=== PATIENT | female | born 1940 | race Caucasian/White ===

== ENCOUNTER 2018-11-03 20:55 | Emergency (ER) | payer MEDICARE, OTHER ==
--- NOTE | 2018-11-03 21:27 | EDM.PDOC ---
ED HPI GENERAL MEDICAL PROBLEM - General Chief Complaint: Lower Extremity Injury/Pain Stated Complaint: INJURED ANKLE Time Seen by Provider: 11/03/18 21:25 Source of Information: Reports: Patient History Limitations: Reports: No Limitations - History of Present Illness INITIAL COMMENTS - FREE TEXT/NARRATIVE: c/o pain and swelling to left ankle, getting neighbors, mail, missed step twisting ankle. landed on buttocks, Did not hit head. No dizziness. Stated garage dark unfamiliar and missed step. Ambulatory weight bearing after. Denies other injury later adding intermittent mild left hip buttock pain. Treatments JOURNALISM INTERN: Reports: NSAIDS Left Ankle Pain Score (Numeric/FACES): 6 - Related Data Allergies Allergy/AdvReac Type Severity Reaction Status Date / Time Penicillins Allergy Hives Verified 11/03/18 21:24 Home Meds: Home Meds Losartan/Hydrochlorothiazide [Losartan-HCTZ 100-12.5 MG] 1 tab PO DAILY [History] Mesalamine [Delzicol] 800 mg PO BID 11/03/18 [History] Past Medical History Cardiovascular History: Reports: Hypertension Gastrointestinal History: Reports: Other (See Below) Other Gastrointestinal History: Ulcerative Colitis Review of Systems - Review of Systems Review Of Systems: ROS reveals no pertinent complaints other than HPI. ED EXAM, GENERAL - Physical Exam Exam: See Below Exam Limited By: No Limitations General Appearance: Alert, Mild Distress Eye Exam: Bilateral Eye: EOMI Ears: Normal External Exam, Hearing Grossly Normal Nose: Normal Inspection Throat/Mouth: Normal Voice Head: Atraumatic, Normocephalic Neck: Normal Inspection, Full Range of Motion Respiratory/Chest: No Respiratory Distress, Lungs Clear Cardiovascular: Normal Peripheral Pulses, Regular Rate, Rhythm GI/Abdominal: Soft Back Exam: Full Range of Motion Extremities: Limited Range of Motion (lateral swelling left ankle mild pain with inversion and flexion), Other (good ROM left hip no pain with ROM or palpation) Neurological: Alert, Oriented, Normal Cognition, No Motor/Sensory Deficits Psychiatric: Normal Affect Skin Exam: Warm, Dry, Intact, Ecchymosis (lateral left ankle) Course - Vital Signs Last Recorded V/S: Last Vital Signs Temp 97.3 F 11/03/18 21:24 Pulse 66 11/03/18 21:24 Resp 16 11/03/18 21:24 BP 96/81 11/03/18 21:24 Pulse Ox 100 11/03/18 21:24 - Orders/Labs/Meds Orders: Active Orders 24 hr Category Date Time Status Ankle Min 3V Lt [CR] Urgent Exams 11/03/18 21:23 Taken - Radiology Interpretation Free Text/Narrative:: [facility] [place] [facility] Final Radiology Report Call: [phone] assistance Online chat: [email or web address] Name: ALTAF BUENO Age: 78Years F Date: 11/03/2018 SSN: -- : [id number] Study: XR ANKLE COMPLETE MIN 3 VIEWS LEFT Requesting Physician: ROD WEST Images: 3 Addl Studies: Provided Clinical History: Contrast: Contrast Medium: Contrast Amount: Contrast Method: CONFIDENTIALITY STATEMENT This report is intended only for use by the referring physician, and only in accordance with law. If you received this in error, call [phone]. Page 1 of 1 EXAM: XR Left Ankle EXAM DATE/TIME: 11/03/2018 9:30 PM CLINICAL HISTORY: 78 years old, female; Left; Patient HX: Missed step twisting ankle, lateral ankle pain and swelling TECHNIQUE: Imaging protocol: XR Left ankle. Views: 3 or more views. COMPARISON: No relevant prior studies available. FINDINGS: Bones/joints: No acute fracture. Soft tissues: There is significant soft tissue swelling in the lateral malleolus. IMPRESSION: No acute osseous process. Thank you for allowing us to participate in the care of your patient. Dictated and Authenticated by: Sundar Barry MD 11/03/2018 9:59 PM Central Time ([place] & [place]) - Re-Assessments/Exams Free Text/Narrative Re-Assessment/Exam: 11/03/18 22:00 C/o intermittent left hip pain. Refuses xray of hip or pelvis. Recommend follow up tomorrow if pain continues Departure - Departure Time of Disposition: 22:01 Disposition: Home, Self-Care 01 Condition: Good Clinical Impression: Left hip pain Fall Qualifiers: Encounter type: initial encounter Qualified Code(s): W19.XXXA - Unspecified fall, initial encounter Left ankle sprain Qualifiers: Encounter type: initial encounter Involved ligament of ankle: unspecified ligament Qualified Code(s): S93.402A - Sprain of unspecified ligament of left ankle, initial encounter - Discharge Information *PRESCRIPTION DRUG MONITORING PROGRAM REVIEWED*: Not Applicable *COPY OF PRESCRIPTION DRUG MONITORING REPORT IN PATIENT TATIANA: Not Applicable Instructions: How to Use a Stirrup Ankle Brace, [id number], Ankle Sprain, [id number] Forms: ED Department Discharge Additional Instructions: ice elevate, ankle brace tylenol 650 mg every 4 hours as needed for discomfort follow up if symptoms worsen - My Orders Last 24 Hours: My Active Orders 11/03/18 21:23 Ankle Min 3V Lt [CR] Urgent - Assessment/Plan Last 24 Hours: My Active Orders 11/03/18 21:23 Ankle Min 3V Lt [CR] Urgent
== END 2018-11-03 22:20 | disposition home or self-care (01) ==
LOC: DL.ED 20:55
DX: S93.402A Sprain of unspecified ligament of left ankle, initial encounter (principal); M25.552 Pain in left hip; I10 Essential (primary) hypertension; Z88.0 Allergy status to penicillin; Z79.899 Other long term (current) drug therapy; W19.XXXA Unspecified fall, initial encounter
CPT/HCPCS: 73610-LT; 99283-25

== ENCOUNTER 2019-11-08 07:01 | Emergency (ER) | payer MEDICARE, OTHER ==
--- NOTE | 2019-11-08 07:13 | EDM.PDOC ---
ED HPI GENERAL MEDICAL PROBLEM - General Chief Complaint: Chest Pain Stated Complaint: CHEST PAINS Time Seen by Provider: 11/08/19 07:13 Source of Information: Reports: Patient, RN, RN Notes Reviewed History Limitations: Reports: No Limitations - History of Present Illness INITIAL COMMENTS - FREE TEXT/NARRATIVE: Pt presents to ER from home by POV with c/o chest and upper abdominal pain for the past 2 days. The pain radiates from the epigastric and substernal chest to her upper back and hurts between her shoulder blades, and sometimes into the left upper arm. She also c/o nausea. Denies vomiting, diarrhea, constipation, cough, lightheadedness, syncope, palpitation, edema, fever, or chills. Pt admits that she has had some degree of epigastric discomfort after eating for several weeks, but not consistently. She says she has been burping a lot more that usual. She also admits to feeling short of breath at times, especially with exertion. The symptoms are worse after she eats. She has been taking Tylenol, Ibuprofen, and Tums with minimal relief. Denies Hx of CAD/ME, CVA, or DM. Denies history of abdominal surgery. Onset: Gradual Duration: Day(s): (3), Recurring, Waxing/Waning Location: Reports: Chest, Abdomen Quality: Reports: Ache, Burning Severity: Moderate Improves with: Reports: None Worsens with: Reports: Eating Associated Symptoms: Reports: No Other Symptoms - Related Data Allergies Allergy/AdvReac Type Severity Reaction Status Date / Time lactose Allergy Intolerance Verified 11/08/19 07:17 Penicillins Allergy Hives Verified 11/08/19 07:17 Home Meds: Home Meds Losartan/Hydrochlorothiazide [Losartan-HCTZ 100-12.5 MG] 1 tab PO DAILY 11/03/18 [History] Mesalamine [Delzicol] 800 mg PO BID 11/03/18 [History] Past Medical History HEENT History: Reports: Impaired Vision Cardiovascular History: Reports: Hypertension Gastrointestinal History: Reports: Other (See Below) Other Gastrointestinal History: Ulcerative Colitis DICE TABLE PERSON History: Reports: Musculoskeletal History: Reports: Osteoporosis - Past Surgical History HEENT Surgical History: Reports: Cataract Surgery Social & Family History - Family History Family Medical History: Noncontributory - Caffeine Use Caffeine Use: Reports: Coffee, Tea - Living Situation & Occupation Living situation: Reports: , with Spouse Occupation: Retired ED ROS GENERAL - Review of Systems Review Of Systems: Comprehensive ROS is negative, except as noted in HPI. ED EXAM, GENERAL - Physical Exam Exam: See Below Exam Limited By: No Limitations General Appearance: Alert, WD/WN, No Apparent Distress Nose: Normal Inspection, Normal Mucosa, No Blood Throat/Mouth: Normal Inspection, Normal Lips, Normal Voice, No Airway Compromise Head: Atraumatic, Normocephalic Neck: Normal Inspection, Supple, Non-Tender, Full Range of Motion Respiratory/Chest: No Respiratory Distress, Lungs Clear, Normal Breath Sounds, No Accessory Muscle Use, Chest Non-Tender Cardiovascular: Normal Peripheral Pulses, Regular Rate, Rhythm, No Edema, No Gallop, No JVD, No Murmur, No Rub GI/Abdominal: Normal Bowel Sounds, Soft, No Distention, Tender (at epigastric region). No: Guarding, Rigid, Rebound (Female) Exam: Deferred Rectal (Female) Exam: Deferred Back Exam: Normal Inspection, Full Range of Motion. No: CVA Tenderness (L), CVA Tenderness (R) Extremities: Normal Inspection, Normal Range of Motion, Non-Tender, Normal Capillary Refill, No Pedal Edema Neurological: Alert, Oriented, CN II-XII Intact, Normal Cognition, Normal Gait, No Motor/Sensory Deficits Psychiatric: Normal Affect, Normal Mood Skin Exam: Warm, Dry, Intact, Normal Color, No Rash EKG INTERPRETATION EKG Date: 11/08/19 Time: 07:13 Rhythm: Other (SR) Rate (Beats/Min): 63 [place]: Normal P-Wave: Present (P wave inverted in V1 and V2) QRS: Normal ST-T: Normal QT: Normal Comparison: NA - No Prior EKG Course - Vital Signs Last Recorded V/S: Last Vital Signs Temp 98.4 F 11/08/19 07:05 Pulse 72 11/08/19 07:05 Resp 16 11/08/19 07:05 BP 151/64 H 11/08/19 07:05 Pulse Ox - Orders/Labs/Meds Orders: Active Orders 24 hr Category Date Time Status EKG 12 Lead [EKG Documentation Completion] [RC] STAT Care 11/08/19 07:12 Active Peripheral IV Care [RC] . DIRECTED Care 11/08/19 07:20 Active Heparin Sodium/0.45% NaCl [Heparin 25,000 Units in 1/2 Med 11/08/19 08:00 Active NS 500 ML] 25,000 units in 500 ml IV TITRATE Nitroglycerin/D5W [Nitroglycerin 25 MG/D5W 250 ML] Med 11/08/19 08:15 Active 25 mg in 250 ml IV TITRATE Sodium Chloride 0.9% [Normal Saline] 250 ml Med 11/08/19 08:45 Active IV ASDIRECTED Sodium Chloride 0.9% [Saline Flush] Med 11/08/19 07:19 Active 10 ml FLUSH ASDIRECTED PRN Peripheral IV Insertion Adult [OM.PC] Stat Oth 11/08/19 07:19 Ordered Medication Orders Heparin Sodium/Sodium Chloride (Heparin 25,000 Units In 1/2 Ns 500 Ml) 25,000 units in 500 mls @ 13.042 mls/hr IV TITRATE DAMON; Protocol Last Admin: 11/08/19 08:05 Dose: 12 units/kg/hr, 13.042 mls/hr Documented by: SAMANTHA Cosigned by: PRINCESS Nitroglycerin/Dextrose (Nitroglycerin 25 Mg/D5w 250 Ml) 25 mg in 250 mls @ 3 mls/hr IV TITRATE DAMON; Protocol Sodium Chloride (Normal Saline) 250 mls @ 999 mls/hr IV ASDIRECTED DAMON Last Admin: 11/08/19 08:50 Dose: 999 mls/hr Documented by: SAMANTHA Sodium Chloride (Saline Flush) 10 ml FLUSH ASDIRECTED PRN PRN Reason: Keep Vein Open Last Admin: 11/08/19 07:31 Dose: 10 ml Documented by: SAMANTHA Labs: Laboratory Tests 11/08/19 11/08/19 Range/Units 07:15 07:15 WBC 9.2 (5.0-10.0) 10^3/uL RBC 4.34 (4.2-5.4) 10^6/uL Hgb 12.8 (12.0-16.0) g/dL Hct 37.5 (37.0-47.0) % MCV 86.4 (80-100) fL MCH 29.5 (27.0-34.0) pg MCHC 34.1 (33.0-35.0) g/dL Plt Count 228 (150-450) 10^3/uL Neut % (Auto) 78.6 H (42.2-75.2) % Lymph % (Auto) 13.8 L (20.5-50.1) % Wilkes % (Auto) 6.6 (2-8) % Eos % (Auto) 0.8 L (1.0-3.0) % Baso % (Auto) 0.2 (0.0-1.0) % Sodium 140 (136-145) mmol/L Potassium 3.6 (3.5-5.1) mmol/L Chloride 103 (98-107) mmol/L Carbon Dioxide 25 (21-32) mmol/L Anion Gap 15.6 H (7-13) mEq/L BUN 15 (7-18) mg/dL Creatinine 1.21 H (0.55-1.02) mg/dL Est Cr Clr Drug Dosing 26.64 mL/min Estimated GFR (MDRD) 43 BUN/Creatinine Ratio 12.4 (No establ ref range) Glucose 120 H (74-99) mg/dL Calcium 9.2 (8.5-10.1) mg/dL Total Bilirubin 0.8 (0.2-1.0) mg/dL AST 40 H (15-37) U/L ALT 28 (14-59) U/L Alkaline Phosphatase 88 (46-116) U/L Troponin I 3.571 H* (0.000-0.056) ng/mL Total Protein 7.1 (6.4-8.2) g/dL Albumin 3.9 (3.4-5.0) g/dL Globulin 3.2 Albumin/Globulin Ratio 1.2 Amylase 46 (25-115) U/L Lipase 117 (73-393) U/L Meds: Medications Generic Name Dose Route Start Last Admin Trade Name Freq PRN Reason Stop Dose Admin Heparin Sodium/Sodium Chloride 25,000 units in 500 mls @ 13.042 mls/hr 11/08/19 08:00 11/08/19 08:05 Heparin 25,000 Units In 1/2 Ns 500 Ml IV 12 units/kg/hr TITRATE DAMON 13.042 mls/hr Administration Protocol 12 UNITS/KG/HR Nitroglycerin/Dextrose 25 mg in 250 mls @ 3 mls/hr 11/08/19 08:15 Nitroglycerin 25 Mg/D5w 250 Ml IV TITRATE DAMON Protocol 5 MCG/MIN Sodium Chloride 250 mls @ 999 mls/hr 11/08/19 08:45 11/08/19 08:50 Normal Saline IV 999 mls/hr ASDIRECTED DAMON Administration Sodium Chloride 10 ml 11/08/19 07:19 11/08/19 07:31 Saline Flush FLUSH 10 ml ASDIRECTED PRN Administration Keep Vein Open Discontinued Medications Generic Name Dose Route Start Last Admin Trade Name Freq PRN Reason Stop Dose Admin Aspirin 324 mg 11/08/19 07:16 11/08/19 07:30 Aspirin PO 11/08/19 07:17 324 mg ONETIME ONE Administration Heparin Sodium (Porcine) 4,000 units 11/08/19 07:48 11/08/19 08:02 Heparin Sodium IVPUSH 11/08/19 07:49 4,000 units .BOLUS ONE Administration Nitroglycerin 0.4 mg 11/08/19 07:16 Nitrostat SL Q5M PRN Chest Pain Ondansetron HCl 4 mg 11/08/19 07:29 11/08/19 07:32 Zofran IV 11/08/19 07:30 4 mg ONETIME ONE Administration - Radiology Interpretation Free Text/Narrative:: [facility] Final Radiology Report Call: [phone] assistance Online chat: [email or web address] Name: ALTAF BUENO Age: 79Years F Date: 11/08/2019 SSN: -- : 1940 Study: CR CHEST 1V FRONTAL Requesting Physician: ANDRY GUERRERO Images: 1 Addl Studies: Provided Clinical History: chest pain Contrast: Contrast Medium: Contrast Amount: Contrast Method: CONFIDENTIALITY STATEMENT This report is intended only for use by the referring physician, and only in accordance with law. If you received this in error, call [phone]. Page 1 of 1 PROCEDURE INFORMATION: Exam: XR Chest, 1 View Exam date and time: 11/08/2019 8:19 AM Age: 79 years old Clinical indication: Chest pain TECHNIQUE: Imaging protocol: XR of the chest Views: 1 view. COMPARISON: No relevant prior studies available. FINDINGS: Lungs: No pneumonia or pulmonary edema. No pneumonia or pulmonary edema. Pleural space: No pleural effusion or pneumothorax. Heart/Mediastinum: The cardiac silhouette is not enlarged. The mediastinal contours are normal. Bones/joints: There is an S-shaped curvature of the thoracolumbar spine. There is a de dios shaped deformity to the ribcage likely due to diffuse osteopenia. IMPRESSION: No acute abnormality. Thank you for allowing us to participate in the care of your patient. Dictated and Authenticated by: Giovanny Pennington MD 11/08/2019 8:40 AM Central Time ([place] & [place]) - Re-Assessments/Exams Free Text/Narrative Re-Assessment/Exam: 11/08/19 07:50 Consult to [facility] for transfer, no beds available. Call to [facility]: 08:07HRS, [facility] on diversion with no beds or case by case and advise to call back at 0817HRS. No bed avail. 0815HR. Call Troy Susan (0815HRS): Dr. Rajput accepts the pt as a direct admit, but pt will have to be held here for 2 hours until the bed becomes available. Departure - Departure Time of Disposition: 08:30 Disposition: DC/Tfer to Acute Hospital 02 Reason for Transfer *Q: Primary PCI Indicated Condition: Serious Clinical Impression: Non-ST elevated myocardial infarction (non-STEMI) Referrals: Danielle Levine FISCAL OFFICER [Primary Care Provider] - Forms: ED Department Discharge, Interfacility Transfer [place] Sepsis Event Note (ED) - Focused Exam Vital Signs: Vital Signs Temp Pulse Resp BP 11/08/19 07:05 98.4 F 72 16 151/64 H - My Orders Last 24 Hours: My Active Orders 11/08/19 07:12 EKG 12 Lead [EKG Documentation Completion] [RC] STAT 11/08/19 07:19 Sodium Chloride 0.9% [Saline Flush] 10 ml FLUSH ASDIRECTED PRN Peripheral IV Insertion Adult [OM.PC] Stat 11/08/19 07:20 Peripheral IV Care [RC] . DIRECTED 11/08/19 08:00 Heparin Sodium/0.45% NaCl [Heparin 25,000 Units in 1/2 NS 500 ML] 25,000 units in 500 ml IV TITRATE 11/08/19 08:15 Nitroglycerin/D5W [Nitroglycerin 25 MG/D5W 250 ML] 25 mg in 250 ml IV TITRATE 11/08/19 08:45 Sodium Chloride 0.9% [Normal Saline] 250 ml IV ASDIRECTED - Assessment/Plan Last 24 Hours: My Active Orders 11/08/19 07:12 EKG 12 Lead [EKG Documentation Completion] [] STAT 11/08/19 07:19 Sodium Chloride 0.9% [Saline Flush] 10 ml FLUSH ASDIRECTED PRN Peripheral IV Insertion Adult [OM.PC] Stat 11/08/19 07:20 Peripheral IV Care [] . DIRECTED 11/08/19 08:00 Heparin Sodium/0.45% NaCl [Heparin 25,000 Units in 1/2 NS 500 ML] 25,000 units in 500 ml IV TITRATE 11/08/19 08:15 Nitroglycerin/D5W [Nitroglycerin 25 MG/D5W 250 ML] 25 mg in 250 ml IV TITRATE 11/08/19 08:45 Sodium Chloride 0.9% [Normal Saline] 250 ml IV ASDIRECTED
[2019-11-08] MEDS ORDERED: Nitroglycerin 0.4 MG Tab.SL SL PRN (07:16)
[2019-11-08] MEDS ORDERED: Aspirin 81 MG Tab.Chew PO ONE (07:16)
[2019-11-08] MEDS ORDERED: Sodium Chloride 0.9% 10 ML Syringe FLUSH PRN (07:19)
[2019-11-08] MEDS ORDERED: Ondansetron 4 MG/2 ML SDV IV ONE (07:29)
[2019-11-08 07:43] LABS: ANION GAP 15.6 mEq/L (7-13)
[2019-11-08] MEDS ORDERED: Heparin Sodium 5,000 Units/ML Vial IVPUSH ONE (07:48)
[2019-11-08] MEDS ORDERED: Heparin Sodium/0.45% NaCl 25,000 UNITS/500 ML BAG IV SCH (08:00)
[2019-11-08] MEDS ORDERED: Nitroglycerin/D5W 25 MG/250 ML BOTTLE IV SCH (08:15)
--- NOTE | 2019-11-08 08:40 | CR ---
PROCEDURE INFORMATION: Exam: XR Chest, 1 View Exam date and time: 11/08/2019 8:19 AM Age: 79 years old Clinical indication: Chest pain TECHNIQUE: Imaging protocol: XR of the chest Views: 1 view. COMPARISON: No relevant prior studies available. FINDINGS: Lungs: No pneumonia or pulmonary edema. No pneumonia or pulmonary edema. Pleural space: No pleural effusion or pneumothorax. Heart/Mediastinum: The cardiac silhouette is not enlarged. The mediastinal contours are normal. Bones/joints: There is an S-shaped curvature of the thoracolumbar spine. There is a de dios shaped deformity to the ribcage likely due to diffuse osteopenia. IMPRESSION: No acute abnormality.
[2019-11-08] MEDS ORDERED: Sodium Chloride 0.9% 250 ML IV SCH (08:45)
== END 2019-11-08 11:28 ==
LOC: DL.ED 07:01
DX: I21.4 Non-ST elevation (NSTEMI) myocardial infarction (principal); I10 Essential (primary) hypertension; Z91.011 Allergy to milk products; Z88.0 Allergy status to penicillin; Z79.899 Other long term (current) drug therapy
CPT/HCPCS: 36415; 71045; 80053; 82150; 83690; 84484; 85025; 93005; 96365; 96366; 96375; 99285-25; A9270-GY; J1644; J2405; J7050